=== PATIENT | female | born 1980 ===

== ENCOUNTER 2020-11-07 19:31 | Emergency (ER) | payer OTHER ==
[~2020-11-07] VITALS: Ht 167.6 cm; Wt 117.9 kg
[2020-11-07 19:40] VITALS: BP 183/126
== END 2020-11-07 21:21 | disposition left against medical advice (07) ==
LOC: ER 19:32
DX: I10 Essential (primary) hypertension (principal); Z53.21 Procedure and treatment not carried out due to patient leaving prior to being seen by health care provider